=== PATIENT | female | born 1985 | race African-American/Black ===

== ENCOUNTER 2019-03-17 22:33 | Emergency (ER) | payer MEDICAID ==
[2019-03-17] MEDS ORDERED: Sodium Chloride 0.9% 10 ML Syringe FLUSH PRN (22:53)
[2019-03-17] MEDS ORDERED: Ketorolac 30 MG/ML SDV IVPUSH ONE (22:56)
--- NOTE | 2019-03-17 23:02 | EDM.PDOC ---
ED HPI GENERAL MEDICAL PROBLEM - General Chief Complaint: Cardiovascular Problem Stated Complaint: CHEST PAIN Time Seen by Provider: 03/17/19 22:57 Source of Information: Reports: Patient History Limitations: Reports: No Limitations - History of Present Illness INITIAL COMMENTS - FREE TEXT/NARRATIVE: Presents with sharp, pleuritic right sided chest pain x 1 week. Patient also noticed a swollen right tonsil with white spots two days ago. Denies sore throat , neck pain, fever or cough. No prior h/o CAD, DVT/PE, aneurysm or chronic lung disease. No significant family history either. Patient is a nonsmoker and is 7 months post . Duration: Week(s): (1) Location: Reports: Chest Severity: Moderate Worsens with: Reports: Breathing - Related Data Home Meds: Home Meds Naproxen 500 mg PO BID PRN #20 tablet 03/18/19 [Rx] Past Medical History - Past Health History Medical/Surgical History: Denies Medical/Surgical History Social & Family History - Tobacco Use Smoking Status *Q: Never Smoker ED ROS GENERAL - Review of Systems Review Of Systems: Comprehensive ROS is negative, except as noted in HPI. ED EXAM, GENERAL - Physical Exam Exam: See Below Exam Limited By: No Limitations General Appearance: Alert, WD/WN, No Apparent Distress Ears: Normal External Exam Nose: Normal Inspection Throat/Mouth: No Airway Compromise, Other (right tonsillar exudate, uvula is midline) Head: Atraumatic, Normocephalic Neck: Full Range of Motion Respiratory/Chest: No Respiratory Distress, Lungs Clear, Normal Breath Sounds, Chest Non-Tender Cardiovascular: Regular Rate, Rhythm, No Murmur GI/Abdominal: No Distention Back Exam: Full Range of Motion Extremities: Normal Range of Motion Neurological: Alert, Normal Cognition, No Motor/Sensory Deficits Psychiatric: Normal Affect, Normal Mood EKG INTERPRETATION EKG Date: 03/17/19 Time: 22:59 Rhythm: NSR Rate (Beats/Min): 80 [place]: Normal P-Wave: Present QRS: Normal ST-T: Normal QT: Normal Course - Vital Signs Text/Narrative:: Triage vitals: T97.4, BP 125/78, HR 86, RR 14, Sa02 100% RA - Orders/Labs/Meds Orders: Active Orders 24 hr Category Date Time Status EKG Documentation Completion [RC] ASDIRECTED Care 03/17/19 22:56 Active Ang Chest [CT] Stat Exams 03/17/19 23:39 Stop Req Ang Chest [CT] Stat Exams 03/18/19 00:02 Taken CXR [Chest 1V Frontal] [CR] Stat Exams 03/17/19 22:55 Taken CULTURE STREP A CONFIRMATION [RM] Stat Lab 03/17/19 23:45 Results STREP SCRN A RAPID W CULT CONF [RM] Stat Lab 03/17/19 23:45 Results Sodium Chloride 0.9% [Saline Flush] Med 03/17/19 22:53 Active 10 ml FLUSH ASDIRECTED PRN Saline Lock Insert [OM.PC] Routine Oth 03/17/19 22:53 Ordered EKG 12 Lead [EK] Stat Ther 03/17/19 22:56 Ordered Medication Orders Sodium Chloride (Saline Flush) 10 ml FLUSH ASDIRECTED PRN PRN Reason: Keep Vein Open Labs: Laboratory Tests 03/17/19 03/17/19 03/17/19 Range/Units 23:03 23:03 23:03 WBC 6.1 (4.5-12.0) X10-3/uL RBC 4.49 (3.23-5.20) x10(6)uL Hgb 13.4 (11.5-15.5) g/dL Hct 39.8 (30.0-51.3) % MCV 88.6 (80-96) fL MCH 29.9 (27.7-33.6) pg MCHC 33.7 (32.2-35.4) g/dL RDW 12.1 (11.5-15.5) % Plt Count 279 (125-369) X10(3)uL MPV 10.0 (7.4-10.4) fL Neut % (Auto) 49.8 (46-82) % Lymph % (Auto) 39.3 H (13-37) % [place] % (Auto) 6.3 (4-12) % Eos % (Auto) 3 (1.0-5.0) % Baso % (Auto) 1 (0-2) % Neut # (Auto) 3.0 (1.6-8.3) # Lymph # (Auto) 2.4 (0.6-5.0) # [place] # (Auto) 0.4 (0.0-1.3) # Eos # (Auto) 0.2 (0.0-0.8) # Baso # (Auto) 0.1 (0.0-0.2) # PT 9.7 (8.7-11.1) INR 1.00 (0.89-1.13) APTT 22.3 L (24.4-33.2) SECONDS D-Dimer, Quantitative 0.36 (0.0-0.59) mg/LFEU Sodium 140 (135-145) mmol/L Potassium 3.7 (3.5-5.3) mmol/L Chloride 105 (100-110) mmol/L Carbon Dioxide 27 (21-32) mmol/L BUN 10 (7-18) mg/dL Creatinine 0.8 (0.55-1.02) mg/dL Est Cr Clr Drug Dosing TNP Estimated GFR (MDRD) > 60 (>60) BUN/Creatinine Ratio 12.5 (9-20) Glucose 91 (80-116) mg/dL Calcium 9.4 (8.6-10.2) mg/dL Total Bilirubin 0.2 (0.1-1.3) mg/dL AST 17 (5-25) IU/L ALT 26 (12-36) U/L Alkaline Phosphatase 84 (56-112) IU/L Troponin I (<0.017-0.056) ng/mL Total Protein 8.0 (6.0-8.0) g/dL Albumin 3.8 (3.5-5.2) g/dL Globulin 4.2 g/dL Albumin/Globulin Ratio 0.9 03/17/19 Range/Units 23:03 WBC (4.5-12.0) X10-3/uL RBC (3.23-5.20) x10(6)uL Hgb (11.5-15.5) g/dL Hct (30.0-51.3) % MCV (80-96) fL MCH (27.7-33.6) pg MCHC (32.2-35.4) g/dL RDW (11.5-15.5) % Plt Count (125-369) X10(3)uL MPV (7.4-10.4) fL Neut % (Auto) (46-82) % Lymph % (Auto) (13-37) % [place] % (Auto) (4-12) % Eos % (Auto) (1.0-5.0) % Baso % (Auto) (0-2) % Neut # (Auto) (1.6-8.3) # Lymph # (Auto) (0.6-5.0) # [place] # (Auto) (0.0-1.3) # Eos # (Auto) (0.0-0.8) # Baso # (Auto) (0.0-0.2) # PT (8.7-11.1) INR (0.89-1.13) APTT (24.4-33.2) SECONDS D-Dimer, Quantitative (0.0-0.59) mg/LFEU Sodium (135-145) mmol/L Potassium (3.5-5.3) mmol/L Chloride (100-110) mmol/L Carbon Dioxide (21-32) mmol/L BUN (7-18) mg/dL Creatinine (0.55-1.02) mg/dL Est Cr Clr Drug Dosing Estimated GFR (MDRD) (>60) BUN/Creatinine Ratio (9-20) Glucose (80-116) mg/dL Calcium (8.6-10.2) mg/dL Total Bilirubin (0.1-1.3) mg/dL AST (5-25) IU/L ALT (12-36) U/L Alkaline Phosphatase (56-112) IU/L Troponin I < 0.017 L (<0.017-0.056) ng/mL Total Protein (6.0-8.0) g/dL Albumin (3.5-5.2) g/dL Globulin g/dL Albumin/Globulin Ratio Meds: Medications Generic Name Dose Route Start Last Admin Trade Name Freq PRN Reason Stop Dose Admin Sodium Chloride 10 ml 03/17/19 22:53 Saline Flush FLUSH ASDIRECTED PRN Keep Vein Open Discontinued Medications Generic Name Dose Route Start Last Admin Trade Name Freq PRN Reason Stop Dose Admin Dexamethasone 10 mg 03/17/19 23:30 03/17/19 23:37 Dexamethasone IVPUSH 03/17/19 23:31 10 mg ONETIME ONE Administration Diphenhydramine HCl 25 mg 03/17/19 23:30 03/17/19 23:35 Benadryl IVPUSH 03/17/19 23:31 25 mg ONETIME ONE Administration Iopamidol 100 ml 03/18/19 00:05 03/18/19 00:23 Isovue-370 (76%) IV 03/18/19 00:06 100 ml . DIRECTED ONE Administration Ketorolac Tromethamine 15 mg 03/17/19 22:56 03/17/19 23:27 Toradol IVPUSH 03/17/19 22:57 15 mg ONETIME ONE Administration - Radiology Interpretation Free Text/Narrative:: CXR: No acute process. (ED provider interpretation) CTA Chest: Unremarkable aorta, lungs, pleura and pericardium. ([facility] Radiologist interpretation) - Re-Assessments/Exams Free Text/Narrative Re-Assessment/Exam: 03/18/19 01:20 Chest pain improved after Toradol 15mg IV. Departure - Departure Time of Disposition: 01:20 Disposition: Home, Self-Care 01 Condition: Good Clinical Impression: Pleurisy, Viral pharyngitis Prescriptions: Naproxen 500 mg PO BID PRN #20 tablet PRN Reason: Pain Instructions: Pleurisy, [id number], Pharyngitis, [id number] Referrals: Kanwal Sanchez [employer]ER [Nurse Practitioner] - 2 Days Forms: ED Department Discharge Additional Instructions: Fill the prescription for Naproxen and take as directed. Follow up with a primary physician in 2-3 days. Return to the ER if symptoms worsen. - My Orders Last 24 Hours: My Active Orders 03/17/19 22:53 Sodium Chloride 0.9% [Saline Flush] 10 ml FLUSH ASDIRECTED PRN Saline Lock Insert [OM.PC] Routine 03/17/19 22:55 CXR [Chest 1V Frontal] [CR] Stat 03/17/19 22:56 EKG Documentation Completion [RC] ASDIRECTED EKG 12 Lead [EK] Stat 03/17/19 23:39 Ang Chest [CT] Stat 03/17/19 23:45 CULTURE STREP A CONFIRMATION [RM] Stat STREP SCRN A RAPID W CULT CONF [RM] Stat 03/18/19 00:02 Ang Chest [CT] Stat - Assessment/Plan Last 24 Hours: My Active Orders 03/17/19 22:53 Sodium Chloride 0.9% [Saline Flush] 10 ml FLUSH ASDIRECTED PRN Saline Lock Insert [OM.PC] Routine 03/17/19 22:55 CXR [Chest 1V Frontal] [CR] Stat 03/17/19 22:56 EKG Documentation Completion [RC] ASDIRECTED EKG 12 Lead [EK] Stat 03/17/19 23:39 Ang Chest [CT] Stat 03/17/19 23:45 CULTURE STREP A CONFIRMATION [RM] Stat STREP SCRN A RAPID W CULT CONF [RM] Stat 03/18/19 00:02 Ang Chest [CT] Stat
[2019-03-17] MEDS ORDERED: diphenhydrAMINE 50 MG/ML SDV IVPUSH ONE (23:30)
[2019-03-17] MEDS ORDERED: Dexamethasone 4 MG/ML SDV IVPUSH ONE (23:30)
[2019-03-18] MEDS ORDERED: Iopamidol 755 Mg/ML 100 ML Bottle IV ONE (00:05)
== END 2019-03-18 01:40 | disposition home or self-care (01) ==
LOC: FB.ED 22:33
DX: R09.1 Pleurisy (principal); J02.9 Acute pharyngitis, unspecified
CPT/HCPCS: 36415; 71045; 71275; 80053; 84484; 85025; 85379; 85610; 85730; 87081; 87880; 96374; 96375; 99285; J1100; J1200; J1885; Q9967; 93005